=== PATIENT | female | born 1970 | race Hispanic/Latino ===

== ENCOUNTER → 2022-01-20 | Outpatient (CLI) | payer MEDICARE, BC ==
[~2022-01-20] MED LIST: GENGRAF25 MG PO; IRON; LABETALOL HCL200 MG PO; MYFORTIC360 MG PO; PAIN MEDICINE; PREDNISONE5 MG PO; VITAMIN D
== END ==
LOC: US 11:56
PROVIDERS: ATTEND Internal Medicine Cardiovascular Disease
DX: I48.91 Unspecified atrial fibrillation (principal)
CPT/HCPCS: 76705